=== PATIENT | male | born 1975 | race American Indian/Alaskan Native ===

== ENCOUNTER → 2020-01-07 12:54 | Outpatient (CLI) | payer OTHER, MEDICAID, SELFPAY ==
--- NOTE | 2020-01-07 13:10 | DI.US.S_ITS ---
PROCEDURE: US PERIPH VENOUS LOW EXTREM LT INDICATIONS: CALF PAIN AND LEG SWELLING TECHNIQUE: Real-time imaging, as well as color and pulse Doppler interrogation, were performed of the lower extremity deep veins from the inguinal ligament to the popliteal fossa. COMPARISON: None. FINDINGS: The common femoral, femoral and popliteal veins are normally compressible, and free of intraluminal thrombus. Color and pulse Doppler demonstrate normal phasic intraluminal flow. There is normal augmentation response to distal compression maneuver. IMPRESSION: No DVT found left leg. Dictated by: Ezra Redding M.D. on 01/07/2020 at 14:37 Approved by: Ezra Redding M.D. on 01/07/2020 at 14:37
== END ==
DX: M79.672 Pain in left foot (principal); M79.89 Other specified soft tissue disorders
CPT/HCPCS: 93971

== ENCOUNTER 2020-04-06 14:35 | Emergency (ER) | payer OTHER, MEDICAID, SELFPAY ==
[2020-04-06] VITALS (10 sets, daily range): BP systolic 139–174; BP diastolic 65–91; PULSE 59–73; RESP 20–22; TEMP 37.2; O2SAT 95–98
--- NOTE | 2020-04-06 14:56 | ED_ITS ---
HPI - Skin/Abscess/Foreign Bdy General Chief complaint: Skin/Abscess/Foreign Body Stated complaint: Pinky Toe and 4th Toe Left Foot Time Seen by Provider: 04/06/20 14:37 Source: patient Mode of arrival: Ambulatory Limitations: no limitations History of Present Illness HPI narrative: 44-year-old male nondiabetic who is here for evaluation of black color to the little and 4th toe of his left foot. Patient states that all of his symptoms and started approximately 1 month ago where he started to notice some discoloration. Solid provider at his [facility] clinic and was started on antibiotics which he completed. Was also told to soak his toe. Which he has been doing. He states that since then he has noticed the discoloration on the black colors worsening over the past several weeks. He denies any fevers. Has some discomfort in the area. Went to the clinic today and was evaluated and was told to come to the emergency department secondary to the discoloration. No trauma. Related Data Home Medications Medication Instructions Recorded Confirmed ACETAMINOPHEN (TYLENOL) 0 PO *UK DOSE/FREQUENCY #0 10/01/06 IBUPROFEN (Motrin / Advil) 0 PO * UK DOSE/FREQUENCY #0 10/01/06 Previous Rx's Medication Instructions Recorded doxycycline hyclate 100 mg PO BID 7 Days #14 cap 04/06/20 Allergies Allergy/AdvReac Type Severity Reaction Status Date / Time tramadol Allergy Rash Verified 04/06/20 14:58 Review of Systems Constitutional Constitutional: Denies fever(s) and Denies headache(s) ENT Ears, Nose, Mouth, and Throat: Denies headache(s) Cardiovascular Cardiovascular: Denies chest pain and Denies dyspnea Respiratory Respiratory: Denies dyspnea Gastrointestinal Gastrointestinal: Denies abdominal pain Genitourinary Genitourinary: Denies dysuria Genitourinary: Denies dysuria Musculoskeletal Comments: Fourth and 5th toes left foot pain. Integumentary/Breasts Comments: Black coloration to toes of left foot Neurologic Neurologic: Denies behavioral changes and Denies headache(s) Psychiatric Psychiatric: Denies behavioral changes Hematologic/Lymphatic Hematologic/Lymphatic: Denies easy bleeding and Denies easy bruising Allergic/Immunologic Allergic/Immunologic: Denies urticaria Patient History Medical History Patient denies medical problems Social History lives independently: Yes Exam Initial Vital Signs Initial Vital Signs: Vital Signs Temperature 98.9 F 04/06/20 14:42 Pulse Rate 73 04/06/20 14:42 Respiratory Rate 22 04/06/20 14:42 Blood Pressure 143/79 H 04/06/20 14:42 Pulse Oximetry 97 04/06/20 14:42 Const General: cooperative and comfortable Nutritional Appearance: overweight Limitations: mental status not altered HENMD Head: normal to inspection and normocephalic Resp Effort & Inspection: normal respiratory effort Cardio Pulses: posterior tibial pulses present on the left and dorsalis pedis present on the left Neuro Sensory Exam: no sensory deficits noted Course Orders Ordered: ED Orders 04/06/20 14:55 XR foot LT min 3V Stat 04/06/20 15:05 COVID19 Stat 04/06/20 15:10 C-Reactive Protein Quant Stat Complete Blood Count AUTO DIFF Stat Comprehensive Metabolic Panel Stat Erythrocyte Sedimentation Rate Stat Hemoglobin A1C% w Est Avg Glu Stat Lactate (Lactic Acid) Stat Procalcitonin Stat 04/06/20 15:35 Blood Culture Stat Sodium Chloride (Normal Saline 0.9%) 1,000 mls @ 125 mls/hr IV CONT SIMEON Last Admin: 04/06/20 15:11 Dose: 125 mls/hr Documented by: HARRIS Discontinued Medications Acetaminophen/Codeine Phosphate (Codeine/Acetaminophen 30/300 Tablet) 1 tab PO NOW ONE Stop: 04/06/20 16:05 Last Admin: 04/06/20 16:12 Dose: 1 tab Documented by: ESTELA Ceftriaxone Sodium/Dextrose (Rocephin) 1 gm in 50 mls @ 100 mls/hr IV NOW ONE Stop: 04/06/20 16:22 Last Infusion: 04/06/20 16:42 Dose: 0 mls/hr Documented by: Admin: 04/06/20 16:05 Dose: 100 mls/hr Documented by: ESTELA Vancomycin HCl (Vancomycin) 1,000 mg in 200 mls @ 200 mls/hr IV NOW ONE Stop: 04/06/20 16:52 Last Infusion: 04/06/20 17:45 Dose: 0 mls/hr Documented by: Admin: 04/06/20 16:43 Dose: 200 mls/hr Documented by: ESTELA Vital Signs Vital signs: Vital Signs - 8 hr 04/06/20 14:42 04/06/20 16:07 04/06/20 16:08 Temperature 98.9 F Pulse Rate 73 68 Respiratory Rate 22 20 Blood Pressure 143/79 H 174/91 H Pulse Oximetry 97 96 95 MDM - Skin/Abscess/Foreign Bdy Lab Data Attestation: I reviewed the patient's lab results. Result diagrams: 04/06/20 15:10 04/06/20 15:10 Labs: Lab Results 04/06/20 04/06/20 04/06/20 Range/Units 15:05 15:10 15:10 WBC 9.8 (4.5-11.0) X10^3/uL RBC 5.26 (4.5-5.9) X10^6/uL Hgb 14.2 (13.5-17.5) g/dL Hct 42.6 (41-53) % MCV 80.8 (80-100) fL MCH 27.0 (26-34) PG MCHC 33.4 (30-36) % RDW 14.0 (11.6-14.8) % Plt Count 472 H (150-400) X10^3/uL Neut % (Auto) 65.1 (50-75) % Lymph % (Auto) 27.2 (25-40) % Hampton % (Auto) 5.5 (3-14) % Eos % (Auto) 1.6 L (2-4) % Baso % (Auto) 0.6 (0-2) % Neut # (Auto) 6400 (2420-0213) /uL Lymph # (Auto) 2700 (8576-8206) /uL [place] # (Auto) 500 (0-900) /uL Eos # (Auto) 200 (0-450) /uL Baso # (Auto) 100 (0-100) /uL ESR 29 H (0-15) MM/HR Sodium (137-145) mmol/L Potassium (3.4-5.1) mmol/L Chloride (98-107) mmol/L Carbon Dioxide (22-32) mmol/L BUN (9-20) mg/dL Creatinine (0.66-1.25) mg/dL Estimated GFR (>60) mL/min BUN/Creatinine Ratio (6-22) Glucose (70-100) mg/dL Hemoglobin A1c 5.8 (4.0-6.0) % Lactate (0.7-2.1) mmol/L Calcium (8.4-10.2) mg/dL Total Bilirubin (0.2-1.3) mg/dL AST (17-59) IU/L ALT (<50) IU/L Alkaline Phosphatase (38-126) U/L C-Reactive Protein (<1.0) mg/dL Total Protein (6.3-8.2) g/dL Albumin (3.5-5.0) g/dL Globulin (1.7-4.1) g/dL Albumin/Globulin Ratio (1.0-2.8) Procalcitonin (<0.5) ng/mL COVID-19 PCR Negative (Negative) 04/06/20 04/06/20 04/06/20 Range/Units 15:10 15:10 15:10 WBC (4.5-11.0) X10^3/uL RBC (4.5-5.9) X10^6/uL Hgb (13.5-17.5) g/dL Hct (41-53) % MCV (80-100) fL MCH (26-34) PG MCHC (30-36) % RDW (11.6-14.8) % Plt Count (150-400) X10^3/uL Neut % (Auto) (50-75) % Lymph % (Auto) (25-40) % Hampton % (Auto) (3-14) % Eos % (Auto) (2-4) % Baso % (Auto) (0-2) % Neut # (Auto) (4286-1598) /uL Lymph # (Auto) (7866-6960) /uL Hampton # (Auto) (0-900) /uL Eos # (Auto) (0-450) /uL Baso # (Auto) (0-100) /uL ESR (0-15) MM/HR Sodium 138 (137-145) mmol/L Potassium 4.5 (3.4-5.1) mmol/L Chloride 107 (98-107) mmol/L Carbon Dioxide 27 (22-32) mmol/L BUN 13 (9-20) mg/dL Creatinine 0.93 (0.66-1.25) mg/dL Estimated GFR > 60.0 (>60) mL/min BUN/Creatinine Ratio 14.0 (6-22) Glucose 112 H (70-100) mg/dL Hemoglobin A1c (4.0-6.0) % Lactate 0.9 (0.7-2.1) mmol/L Calcium 9.0 (8.4-10.2) mg/dL Total Bilirubin 0.6 (0.2-1.3) mg/dL AST 46 (17-59) IU/L ALT 37 (<50) IU/L Alkaline Phosphatase 110 (38-126) U/L C-Reactive Protein 1.3 H (<1.0) mg/dL Total Protein 8.6 H (6.3-8.2) g/dL Albumin 4.4 (3.5-5.0) g/dL Globulin 4.2 H (1.7-4.1) g/dL Albumin/Globulin Ratio 1.0 (1.0-2.8) Procalcitonin < 0.05 (<0.5) ng/mL COVID-19 PCR (Negative) Imaging Data Extremity x-ray #1: Radiologist's Impression: [address] [id number] ReportSigned Patient: Michoacano Sosa R#: [id number]: 1975Acct:[id number]/Sex: 44 / MDate of Service: 04/06/20Loc: EDAccession Number: [id number] Procedure: XR foot LT min 3V Ordering Provider: Partha Thomas D.O. PROCEDURE: XR FOOT LT MIN 3V INDICATIONS: black 4th and 5th toe eval for osteo TECHNIQUE: 3 views of the foot were acquired. COMPARISON: None. FINDINGS: Bones: No fractures or dislocations. No suspicious bony lesions. Soft tissues: No tibiotalar joint effusion. Achilles tendon appears normal. IMPRESSION: There is mild soft tissue swelling over the 5th digit and the 4th digit to a slightly lesser degree but no gas in the soft tissues trauma or evidence of osteomyelitis is found. Dictated by: Ezra Redding M.D. on 04/06/2020 at 15:49 Approved by: Ezra Redding M.D. on 04/06/2020 at 15:49 MDM Narrative Medical decision making narrative: Patient is nontoxic appearing. Does not have leukocytosis, is afebrile, the issue with the 4th and 5th toes is isolated to the toes. There is no redness surrounding the black areas. Does not extend up his foot. I did discuss the case with Dr. Oakley with orthopedics who states that since there is no associated cellulitis and the rest of his labs are unremarkable that patient be followed up as an outpatient. Patient's number was given to Dr. Oakley in his office will call for the patient to follow-up with podiatry. Patient was also given their phone number for a follow-up. Will send home with antibiotics. He was given strict return precautions. He expressed understanding and agreement. Discharge Plan Departure Patient Disposition: Home Clinical Impression: Dry gangrene Activity Restrictions/Additional Instructions: It is important that you follow-up at the beginning the next week with Podiatry at the [facility]. 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 Take the antibiotics as directed. Return to the emergency department for any new or worsening symptoms like we discussed. Prescriptions: New doxycycline hyclate 100 mg capsule 100 mg PO BID 7 Days Qty: 14 RF: 0 No Action ACETAMINOPHEN (TYLENOL) 0 PO *UK DOSE/FREQUENCY Qty: 0 RF: 0 IBUPROFEN (Motrin / Advil) 0 PO * UK DOSE/FREQUENCY Qty: 0 RF: 0 Referrals: Carmen Vela MD [Primary Care Provider] -
[2020-04-06] MEDS: SODIUM CHLORIDE 0.9% 1,000 ML 125 ML IV (15:11)
[2020-04-06 15:18] LABS: Add Manual Diff / Slide Review NO; Basophils Absolute Auto 100 /uL (0-100); Basophils Percent Auto 0.6 % (0-2); Eosinophils Absolute Auto 200 /uL (0-450); Eosinophils Percent Auto 1.6 % (2-4); Hematocrit 42.6 % (41-53); Hemoglobin 14.2 g/dL (13.5-17.5); Lymphocytes Absolute Auto 2700 /uL (1100-4500); Lymphocytes Percent Auto 27.2 % (25-40); Mean Corpuscular HGB Conc 33.4 % (30-36); Mean Corpuscular Volume 80.8 fL (80-100); Monocytes Absolute Auto 500 /uL (0-900); Monocytes Percent Auto 5.5 % (3-14); Neutrophils Absolute Auto 6400 /uL (1500-7000); Neutrophils Percent Auto 65.1 % (50-75); Platelet Count 472 X10^3/uL (150-400); Red Blood Cell Count 5.26 X10^6/uL (4.5-5.9); White Blood Cell Count 9.8 X10^3/uL (4.5-11.0)
[2020-04-06 15:27] LABS: COVID19 -Nasal RAPID Negative (Negative)
[2020-04-06 15:32] LABS: Lactate (Lactic Acid) 0.9 mmol/L (0.7-2.1)
[2020-04-06 15:34] LABS: Hemoglobin A1C% w Est Avg Glu 5.8 % (4.0-6.0)
[2020-04-06 15:36] LABS: Alanine Aminotransferase 37 IU/L (<50); Albumin 4.4 g/dL (3.5-5.0); Alkaline Phosphatase 110 U/L (38-126); Aspartate Aminotransferase 46 IU/L (17-59); Bilirubin Total 0.6 mg/dL (0.2-1.3); Blood Urea Nitrogen 13 mg/dL (9-20); C-Reactive Protein Quant 1.3 mg/dL (<1.0); Carbon Dioxide 27 mmol/L (22-32); Chloride 107 mmol/L (98-107); Estimated Glomerular Filt Rate > 60.0 mL/min (>60); Globulin 4.2 g/dL (1.7-4.1); Glucose 112 mg/dL (70-100); HEMOLYSIS < 15 (0-50); Potassium 4.5 mmol/L (3.4-5.1); Sodium 138 mmol/L (137-145); Total Protein 8.6 g/dL (6.3-8.2)
[2020-04-06 15:37] LABS: Erythrocyte Sedimentation Rate 29 MM/HR (0-15)
[2020-04-06 15:48] LABS: Procalcitonin < 0.05 ng/mL (<0.5)
[2020-04-06] MEDS: CEFTRIAXONE 1 GM/50 ML FROZ.PIGGY IV (16:05)
[2020-04-06] MEDS: CODEINE/ACETAMINOPHEN 30/300 TABLET 1 TAB PO (16:12)
[2020-04-06] MEDS: VANCOMYCIN 1,000 MG/200 ML PIGGYBACK 200 MG IV (16:43)
== END 2020-04-06 18:13 | disposition home or self-care (01) ==
PROVIDERS: Emergency Provider Emergency Medicine; PCP Family Medicine
DX: I96 Gangrene, not elsewhere classified (principal)
CPT/HCPCS: 36415; 73630; 80053; 83036; 83605; 84145; 85025; 85651; 86140; 87040; 87635; 96365; 96367; 99284

== ENCOUNTER → 2020-04-20 14:49 | Outpatient (CLI) | payer OTHER, SELFPAY | PROVIDERS: PCP Family Medicine; Referring Provider Podiatrist; Visit Provider Family Medicine | DX: I70.262 Atherosclerosis of native arteries of extremities with gangrene, left leg (principal); L97.528 Non-pressure chronic ulcer of other part of left foot with other specified severity; E66.01 Morbid (severe) obesity due to excess calories; L08.9 Local infection of the skin and subcutaneous tissue, unspecified | CPT/HCPCS: 11042; 87070; 87075; 87205; 99203; 99213 ==

== ENCOUNTER → 2020-05-02 13:49 | Outpatient (CLI) | payer OTHER, SELFPAY | PROVIDERS: PCP Family Medicine; Referring Provider Family Medicine; Visit Provider Family Medicine | DX: I70.245 Atherosclerosis of native arteries of left leg with ulceration of other part of foot (principal); L97.521 Non-pressure chronic ulcer of other part of left foot limited to breakdown of skin; R60.0 Localized edema | CPT/HCPCS: 99213 ==

== ENCOUNTER → 2020-05-24 15:13 | Outpatient (CLI) | payer OTHER, MEDICAID, SELFPAY | PROVIDERS: PCP Family Medicine; Referring Provider Family Medicine; Visit Provider Family Medicine | DX: I70.262 Atherosclerosis of native arteries of extremities with gangrene, left leg (principal); L97.521 Non-pressure chronic ulcer of other part of left foot limited to breakdown of skin; E66.01 Morbid (severe) obesity due to excess calories | CPT/HCPCS: 11042; 36415; 82565; 84520; 99212; 99213 ==

== ENCOUNTER → 2020-05-24 15:35 | Outpatient (CLI) | payer OTHER, SELFPAY ==
[2020-05-24 16:19] LABS: Blood Urea Nitrogen 19 mg/dL (9-20); Estimated Glomerular Filt Rate > 60.0 mL/min (>60)
== END ==
PROVIDERS: PCP Family Medicine; Referring Provider Family Medicine; Visit Provider Family Medicine
DX: I70.262 Atherosclerosis of native arteries of extremities with gangrene, left leg (principal)
CPT/HCPCS: 36415; 82565; 84520

== ENCOUNTER → 2024-08-07 15:35 | Outpatient (CLI) | payer BC, SELFPAY ==
--- NOTE | 2024-08-07 15:42 | DI.RAD.S_ITS ---
PROCEDURE: XR KNEE LT 1TO2V INDICATIONS: L KNEE PAIN TECHNIQUE: Two views of the left knee were acquired. COMPARISON: None. FINDINGS: Bones: There are no osseous abnormalities. Joints: The medial tibialfemoral and patellofemoral joints show severe degeneration Soft tissues: Normal IMPRESSION: Severe degeneration Dictated by: Gerardo Temple M.D. on 08/10/2024 at 10:36 Approved by: Gerardo Temple M.D. on 08/10/2024 at 10:38
== END ==
LOC: RAD 15:40
PROVIDERS: PCP Family Medicine; Referring Provider Nurse Practitioner; Visit Provider Nurse Practitioner
DX: M25.562 Pain in left knee (principal); M17.12 Unilateral primary osteoarthritis, left knee
CPT/HCPCS: 73560

== ENCOUNTER 2024-09-25 09:58 | Emergency (ER) | payer BC, SELFPAY ==
[2024-09-25 10:02] VITALS: O2SAT 97
[2024-09-25 10:03] VITALS: BP 143/90; PULSE 69; O2SAT 96
[2024-09-25 10:07] VITALS: BP 143/90; PULSE 67; RESP 16; TEMP 36.9; O2SAT 98; BMI 50.2
--- NOTE | 2024-09-25 10:12 | DI.RAD.S_ITS ---
PROCEDURE: XR HAND RT MIN 3V INDICATIONS: laceration right middle finger TECHNIQUE: 3 views of the hand(s) acquired. COMPARISON: None. FINDINGS: Bones: Dorsal plate fracture of the distal 3rd phalanx base. Carpal bones are normally aligned. No suspicious bony lesions. Remote chip fracture at the base of the 3rd proximal phalanx. Soft tissues: No suspicious soft tissue calcifications. IMPRESSION: Dorsal plate fracture of the distal 3rd phalanx base. Dictated by: Patel Larkin M.D. on 09/25/2024 at 10:28 Approved by: Patel Larkin M.D. on 09/25/2024 at 10:29
--- NOTE | 2024-09-25 11:18 | ED.WOUNDLAC ---
HPI - Wound/Laceration <Disha Delcid PA-C - Last Filed: 09/25/24 13:50> General Chief Complaint: Wound/Laceration Stated Complaint: Cut right hand between middle and ring finger Time Seen by Provider: 09/25/24 11:07 History of Present Illness HPI narrative: Mr. Sosa is a very pleasant 49-year-old male with a past medical history of cholecystectomy who presents to the emergency department for a right hand laceration that occurred prior to arrival. Patient [place] dock when he accidentally fell forward and his right hand scraped against some barnacles on the way down. He sustained a laceration between his middle and ring finger and also a deformity on his distal middle finger. Denies any injuries or pain from the fall besides his right hand. He did not hit his head or lose consciousness. No chest pain, abdominal pain, neck pain, back pain. No blood thinner use. He went to the walk-in clinic and had the wound rinsed out and then came to the ED for further management. States that his tetanus shot needs to be updated. Related Data Home Medications Medication Instructions Recorded Confirmed ACETAMINOPHEN (TYLENOL) 0 PO *UK DOSE/FREQUENCY ##0 10/01/06 IBUPROFEN (Motrin / Advil) 0 PO * UK DOSE/FREQUENCY ##0 10/01/06 Previous Rx's Medication Instructions Recorded ciprofloxacin HCl 750 mg tablet 750 mg PO BID 5 days #10 tabs 09/25/24 Allergies Allergy/AdvReac Type Severity Reaction Status Date / Time tramadol Allergy Rash Verified 09/25/24 10:07 Review of Systems <Disha Delcid PA-C - Last Filed: 09/25/24 13:50> Review of Systems ROS Unobtainable: All systems reviewed & are unremarkable except as noted in HPI and below Patient History <Disha Delcid PA-C - Last Filed: 09/25/24 13:50> Medical History Patient denies medical problems Social History lives independently: Yes Smoking Status: Current every day smoker Smoking Status: Current every day smoker tobacco type: cigarettes Exam <Disha Delcid PA-C - Last Filed: 09/25/24 13:50> Narrative Exam Narrative: GENERAL: 49 year old patient appears stated age. Overweight patient, in no acute distress. HEAD: Atraumatic. Normocephalic. NECK: Trachea midline. Cervical ROM intact. CARDIOVASCULAR: Regular rate and rhythm. RESPIRATORY: ?Nonlabored respirations. ?Speaking in clear, full sentences. ?Clear to auscultation. GASTROINTESTINAL: Abdomen soft, non-tender, nondistended. No bruising. Prior open cholecystectomy scar EXTREMITIES: Right hand with tenderness to palpation of the distal 3rd phalanx with small deformity at the D IP joint, joint held in forward flexion. No open wounds overlying the 3rd finger. There is a laceration in the webspace between the 3rd and 4th fingers that is linear and about 3 cm, no active bleeding. Patient has good sensation and capillary refill distal to the wound. Small superficial abrasion overlying the 3rd MCP. Otherwise normal range of motion of the right hand, strong radial pulse, sensation intact to light touch throughout NEURO: AOx3. ?Clear speech. ?Moves all 4 extremities appropriately. SKIN: Laceration described above otherwise no rashes. Initial Vital Signs Initial Vital Signs: Vital Signs Pulse Oximetry 97 09/25/24 10:02 <Millie Neely DO - Last Filed: 09/25/24 18:15> Initial Vital Signs Initial Vital Signs: Vital Signs Pulse Oximetry 97 09/25/24 10:02 Procedures <ANUJ Hawk Last Filed: 09/25/24 13:50> Laceration Repair Laceration 1: Time of procedure: 12:25 Site: hand Side (If applicable): right Size (cm): 3 Description: linear Depth: simple, single layer Local Anesthetic: lidocaine 1% Amount of anesthesia used (mL): 3 Pre-repair: wound explored, irrigated extensively, deep structures intact and cleansed with chlorhexadine Skin layer closed with: nylon Skin layer suture size: 5-0 Number of sutures: 3 Technique: simple, interrupted Orthopedic Splinting/Casting Injury #1: Side: right Upper Extremity Injury Location: finger (distal 3rd phalanx) Post splinting neuro exam: intact and no change Post splinting vascular exam: no change Placed by: Nursing (and myself) Additional Comments: Dorsal aluminum splint used Course <ANUJ Hawk Last Filed: 09/25/24 13:50> Orders Ordered: ED Orders 09/25/24 10:12 XR hand RT min 3V Stat Discontinued Medications Bacitracin (Bacitracin Oint 0.9 Gm Pckt) 1 applic TOP NOW ONE Stop: 09/25/24 11:18 Last Admin: 09/25/24 12:44 Dose: 1 applic Documented By: MPO Ciprofloxacin (Ciprofloxacin 250 Mg Tablet) 750 mg PO NOW ONE Stop: 09/25/24 12:50 Last Admin: 09/25/24 13:04 Dose: 750 mg Documented By: MPO Diphtheria/Tetanus/Acell Pertussis (Tet,Diph,Pertuss(Acell),Vac/Pf 0.5 Ml Syringe) 0.5 ml IM .ONCE ONE Stop: 09/25/24 11:18 Last Admin: 09/25/24 12:43 Dose: 0.5 ml Documented By: MPO Lidocaine/Epinephrine (Lidocaine 1% W/Epi 10ml) 5 ml INJ INTRA-OP ONE Stop: 09/25/24 11:18 Last Admin: 09/25/24 12:45 Dose: 5 ml Documented By: MPO Vital Signs Vital signs: Vital Signs - 8 hr 09/25/24 13:19 Pulse Rate 87 Respiratory Rate 20 Blood Pressure 157/83 H Pulse Oximetry 98 Oxygen Delivery Method Room Air <Millie Neely DO - Last Filed: 09/25/24 18:15> Orders Ordered: ED Orders 09/25/24 10:12 XR hand RT min 3V Stat Discontinued Medications Bacitracin (Bacitracin Oint 0.9 Gm Pckt) 1 applic TOP NOW ONE Stop: 09/25/24 11:18 Last Admin: 09/25/24 12:44 Dose: 1 applic Documented By: MPO Ciprofloxacin (Ciprofloxacin 250 Mg Tablet) 750 mg PO NOW ONE Stop: 09/25/24 12:50 Last Admin: 09/25/24 13:04 Dose: 750 mg Documented By: MPO Diphtheria/Tetanus/Acell Pertussis (Tet,Diph,Pertuss(Acell),Vac/Pf 0.5 Ml Syringe) 0.5 ml IM .ONCE ONE Stop: 09/25/24 11:18 Last Admin: 09/25/24 12:43 Dose: 0.5 ml Documented By: MPO Lidocaine/Epinephrine (Lidocaine 1% W/Epi 10ml) 5 ml INJ INTRA-OP ONE Stop: 09/25/24 11:18 Last Admin: 09/25/24 12:45 Dose: 5 ml Documented By: MPO Vital Signs Vital signs: Vital Signs - 8 hr 09/25/24 13:19 Pulse Rate 87 Respiratory Rate 20 Blood Pressure 157/83 H Pulse Oximetry 98 Oxygen Delivery Method Room Air MDM - Wound/Laceration <Disha Delcid PA-C - Last Filed: 09/25/24 13:50> Medical Records Attestation: I reviewed the patient's medical records. Imaging Data Right Hand X-Ray: My Impression: Fracture of the base of the distal 3rd phalanx Radiologist's Impression: PROCEDURE: XR HAND RT MIN 3V INDICATIONS: laceration right middle finger TECHNIQUE: 3 views of the hand(s) acquired. COMPARISON: None. FINDINGS: Bones: Dorsal plate fracture of the distal 3rd phalanx base. Carpal bones are normally aligned. No suspicious bony lesions. Remote chip fracture at the base of the 3rd proximal phalanx. Soft tissues: No suspicious soft tissue calcifications. IMPRESSION: Dorsal plate fracture of the distal 3rd phalanx base. Dictated by: Patel Larkin M.D. on 09/25/2024 at 10:28 Approved by: Patel Larkin M.D. on 09/25/2024 at 10:29 [facility] Narrative Medical decision making narrative: 49-year-old male with a past medical history of cholecystectomy who presents to the emergency department for a right hand laceration that occurred prior to arrival. Differential diagnosis includes but is not limited to 3rd finger phalanx fracture, laceration, abrasion, contamination with sea water, etc. On exam patient is in no acute distress, nontoxic-appearing, all vital signs within normal limits. He has a slight deformity of his distal 3rd phalanx, flexion deformity, this is not an open wound, the laceration is in the webspace of the 4th and 3rd fingers. This was caused by a bar [place], see water contamination, therefore we will treat empirically with ciprofloxacin 700 mg b.i.d. for 5 days, patient understands that of the wound does develop signs of infection that he needs additional antibiotics. We will anesthetize the laceration, irrigated extensively and repair loosely. X-ray right hand obtained revealing a dorsal plate fracture of the distal 3rd phalanx base. We will apply dorsal finger splint, inform patient that finger needs to remain splinted at all times as healing. Patient's Tdap was updated, was given 1st dose of antibiotics, wound was anesthetized, extensively cleansed and irrigated, and repaired using 3 simple interrupted sutures. Bacitracin and nonadherent dressing was applied to his wound and then a dorsal aluminum splint was applied to his 3rd middle finger fracture. Patient tolerated all procedures well, discussed proper wound care, follow up with Orthopedics, suture removal 10-14 days, ED return precautions. He verbalized understanding of all information agreeable with the plan, antibiotics sent to pharmacy of choice. Discussed black box warning of fluoroquinolones, advised no heavy lifting or intense exercise for at least the next 2 weeks. He is stable for discharge home. Discharge Plan Departure Patient Disposition: Home Clinical Impression: Laceration of hand, right Qualifiers: Encounter type: initial encounter Foreign body presence: without foreign body Qualified Code(s): S61.411A - Laceration without foreign body of right hand, initial encounter Fall Qualifiers: Encounter type: initial encounter Qualified Code(s): W19.XXXA - Unspecified fall, initial encounter Finger fracture, right Qualifiers: Encounter type: initial encounter Finger: middle finger Fracture type: closed Phalanx: distal Fracture alignment: nondisplaced Qualified Code(s): S62.662A - Nondisplaced fracture of distal phalanx of right middle finger, initial encounter for closed fracture Instructions: How to Care for a Laceration After Repair, DI for Laceration Repair, DI for Finger Fracture Activity Restrictions/Additional Instructions: Today you had a laceration to your right hand. We have placed 3 sutures. They need to be removed in 10-14 days. You may do this in your doctor's office, the [id number], or here if necessary. Please keep the dressing on your wound clean, dry, and intact for the next 24 hours. After this time, you may remove the dressing and gently clean the wound with soap and water, then pat dry. Keep the wound clean and covered. Avoid soaking the wound in any water such as a bath, pool, or the ocean. If you develop any signs of wound infection such as increased redness, pus drainage, streaking redness, or fevers, please return to the ER immediately for evaluation. Once sutures are removed and the wound has healed, apply sunscreen daily to reduce the appearance of scars. We updated your tetanus shot today. Please keep the splint on your middle finger at all times. Please follow up with Orthopedics for further management of your finger fracture as you may benefit from physical therapy after the fracture is healed to help with the tendons. Please follow up with your primary care doctor within the next 2-3 days for ER follow-up. (If you do not have a PCP you can call [phone]. ?to schedule an appointment with an [facility] Primary Care Provider) IF YOU DEVELOP ANY NEW OR WORSENING SYMPTOMS, RETURN TO THE ER! Please read the attached instructions, they highlight more specific treatments and interventions for you at home. Thank you for letting me participate in your care, Disha Delcid PA-C Prescriptions: New ciprofloxacin HCl 750 mg tablet 750 mg PO BID 5 Days Qty: 10 0RF No Action ACETAMINOPHEN (TYLENOL) 0 PO *UK DOSE/FREQUENCY Qty: 0 IBUPROFEN (Motrin / Advil) 0 PO * UK DOSE/FREQUENCY Qty: 0 Referrals: Carmen Vela MD [Primary Care Provider] - Janes Artis MD [Physician] - (right Dorsal plate fracture of the distal 3rd phalanx base.) Stand Alone Forms: Patient Portal/API/Survey ED Sign-out <Millie Neely DO - Last Filed: 09/25/24 18:15> Cosign ED Attending Jus Attestation: I was immediately available in the department for consultation.
[2024-09-25] MEDS: TET,DIPH,PERTUSS(ACELL),VAC/PF 0.5 ML SYRINGE IM (12:43)
[2024-09-25] MEDS: BACITRACIN OINT 0.9 GM PCKT 1 APPLIC TOP (12:44)
[2024-09-25] MEDS: LIDOCAINE 1% W/EPI 10ML 5 ML INJ (12:45)
[2024-09-25] MEDS: CIPROFLOXACIN 250 MG TABLET 750 MG PO (13:04)
[2024-09-25 13:19] VITALS: BP 157/83; PULSE 87; RESP 20; O2SAT 98
== END 2024-09-25 13:29 | disposition home or self-care (01) ==
PROVIDERS: Emergency Provider Physician Assistant; PCP Family Medicine
DX: S61.411A Laceration without foreign body of right hand, initial encounter (principal); S62.662A Nondisplaced fracture of distal phalanx of right middle finger, initial encounter for closed fracture; W18.30XA Fall on same level, unspecified, initial encounter; Z23 Encounter for immunization
CPT/HCPCS: 12002; 29130; 73130; 90471; 99284; 90715